=== PATIENT | male | born 1980 | race Caucasian/White ===

== ENCOUNTER → 2022-02-16 14:42 | Outpatient (CLI) | payer OTHER, SELFPAY ==
--- NOTE | ~2022-02-16 | US_ITS ---
US soft tissue chest 02/16/2022 15:08 Indication: Chest pain with palpable lump Procedure: High-resolution Limited ultrasound of the midline upper chest in the area of palpable conc jason Comparison: No prior studies for comparison. Findings: There is normal heterogeneous echotexture without focal solid or cystic mass. Impression: 1: Normal limited ultrasound of the chest soft tissues in the area of palpable concern. No discrete m ass. Reviewed, dictated and finalized at location A. Impression: 1: Normal limited ultrasound of the chest soft tissues in the area of palpable concern. No discrete mass.
== END ==
PROVIDERS: PCP Student in an Organized Health Care Education/Training Program; Visit Provider Student in an Organized Health Care Education/Training Program
DX: R22.2 Localized swelling, mass and lump, trunk (principal)
CPT/HCPCS: 76604